=== PATIENT | male | born 1990 | race Caucasian/White ===

== ENCOUNTER → 2018-07-05 | Outpatient (CLI) | payer BC | LOC: M WUC 18:28 | DX: R07.89 Other chest pain (principal) | CPT/HCPCS: 71046 ==

== ENCOUNTER → 2020-07-07 | Outpatient (REF) | payer BC, OTHER ==
[2020-07-07 10:49] LABS: SEMEN APPEARANCE OPAQUE (OPAQUE); SEMEN VISCOSITY LIQUID (LIQUID); SEMEN VOLUME 1.6 ml (2.0-5.0); SPERM CONCENTRATION 30.3 M/ml (>=15.0); WBC CONCENTRATION <=1 M/ml (<=1 M/ml)
== END ==
LOC: M LAB REF 10:30
PROVIDERS: ATTEND Obstetrics & Gynecology
DX: Z31.9 Encounter for procreative management, unspecified (principal)

== ENCOUNTER 2020-08-14 11:59 | Emergency (ER) | payer OTHER ==
[~2020-08-14] VITALS: Ht 177.8 cm; Wt 103.8 kg
--- NOTE | 2020-08-14 12:57 | REPVR ---
PROCEDURE INFORMATION: Exam: US Scrotum Exam date and time: 08/14/2020 12:25 PM Age: 29 years old Clinical indication: Scrotum pain; Additional info: Testicular pain TECHNIQUE: Imaging protocol: Real-time ultrasound of the scrotum and contents with color Doppler and image documentation. COMPARISON: No relevant prior studies available. FINDINGS: Right testicle: Right testis measures 4.5 x 2.3 x 2.9 cm. No intratesticular mass. Intratesticular blood flow demonstrated. Left testicle: Left testis measures 4.4 x 2.6 x 2.9 cm. No intratesticular mass. Intratesticular blood flow demonstrated. Epididymides: Unremarkable. Scrotum: Trace hydroceles. IMPRESSION: Unremarkable sonographic evaluation of the testes. Electronically signed by: Marcial Craig On 08/14/2020 12:57:23 PM
[2020-08-14 14:36] VITALS: BP 137/88
== END 2020-08-14 14:58 | disposition home or self-care (01) ==
LOC: M ED 11:59
DX: R36.1 Hematospermia (principal)

== ENCOUNTER → 2020-08-14 | Outpatient (REF) | payer OTHER ==
[2020-08-14 09:47] LABS: SEMEN APPEARANCE OPAQUE (OPAQUE); SEMEN VISCOSITY LIQUID (LIQUID); SEMEN VOLUME 5.9 ml (2.0-5.0)
[2020-08-14 09:48] LABS: SPERM CONCENTRATION 60.5 M/ml (>=15.0); WBC CONCENTRATION <=1 M/ml (<=1 M/ml)
== END ==
LOC: M SMT 09:16
PROVIDERS: ATTEND Nurse Practitioner Family
DX: N46.9 Male infertility, unspecified (principal)

== ENCOUNTER → 2020-11-01 | Outpatient (CLI) | payer SELFPAY | LOC: M LABSMTC 09:40 | PROVIDERS: ATTEND Pediatrics | DX: Z20.828 Contact with and (suspected) exposure to other viral communicable diseases (principal) ==

== ENCOUNTER → 2023-04-26 | Outpatient (REF) | payer BC | LOC: M LAB REF 16:26 | PROVIDERS: ATTEND Internal Medicine | DX: R50.9 Fever, unspecified (principal) ==

== ENCOUNTER → 2024-03-26 | Outpatient (CLI) | payer BC | LOC: M WUC 11:33 | PROVIDERS: ATTEND Physician Assistant | DX: S80.02XA Contusion of left knee, initial encounter (principal); Y93.9 Activity, unspecified; Y92.9 Unspecified place or not applicable ==

== ENCOUNTER → 2025-02-04 | Outpatient (REF) | payer BC | LOC: M LAB REF 12:17 | PROVIDERS: ATTEND Internal Medicine | DX: Z00.00 Encounter for general adult medical examination without abnormal findings (principal); R51.9 Headache, unspecified ==

== ENCOUNTER → 2025-02-11 | Outpatient (CLI) | payer BC | LOC: M PLAIMG 08:15 | PROVIDERS: ATTEND Internal Medicine | DX: R51.9 Headache, unspecified (principal) ==